=== PATIENT | male | born 1970 | race Caucasian/White ===

== ENCOUNTER 2016-09-20 20:40 | Emergency (ER) | payer BC ==
[~2016-09-20] VITALS: Ht 175.3 cm; Wt 79.8 kg
[2016-09-20 20:42] VITALS: BP 128/79; PULSE 84; RESP 16; TEMP 97.9; O2SAT 97
--- NOTE | 2016-09-20 20:56 | PD ---
HPI Chief Complaint: Musculoskeletal Complaint Time Seen by Provider: 20:54 Travel History International Travel<30 days: No Contact w/Intl Traveler<30days: No Traveled to known affect area: No History of Present Illness HPI This is a 46-year-old male who presents to the emergency department having been sitting on a barstool where his foot was about a foot up slipping off and landing on his left fifth toe. His toes been swollen ever since, with some moderate severity pain, constant, worse with movement. Patient has no other injuries. He is an avid runner. [facility] / [facility] Social History Alcohol Use: Yes Tobacco Use: No Substance Use: No Allergies-Medications (Allergen,Severity, Reaction): Coded Allergies: Aleve (Verified Allergy, Unknown, 09/20/16) Reported Meds & Prescriptions Reported Meds & Active Scripts Active No Active Prescriptions or Reported Medications Review of Systems General / Constitutional: No: Fever, Chills Cardiovascular: No: Chest Pain or Discomfort Physical Exam Narrative GENERAL: Well-appearing, no acute distress, nontoxic SKIN: Warm and dry. HEAD: Atraumatic. Normocephalic. ENT: No nasal bleeding or discharge. Moist mucous membranes MUSCULOSKELETAL: Diffuse swelling of the left fifth digit with pain with flexion and extension Vascular: Normal capillary refill of the left fifth toe. NEUROLOGICAL: Awake and alert. No obvious cranial nerve deficits. Motor grossly within normal limits. Normal speech. Sensation and motor grossly intact in the left fifth digit. PSYCHIATRIC: Appropriate mood and affect; insight and judgment normal. Data Data Last Documented VS Vital Signs Date Time Temp Pulse Resp B/P Pulse Ox O2 Delivery O2 Flow Rate FiO2 09/20/16 20:42 97.9 84 16 128/79 97 Orders Toe (Min 2vws) (09/20/16 ) Ibuprofen (Motrin) (09/20/16 21:00) Lidocaine Pf 1% Inj (Xylocaine-Mpf 1% In (09/20/16 22:00) MDM Medical Decision Making Medical Screen Exam Complete: Yes Emergency Medical Condition: Yes Interpretation(s) Afebrile, no tachycardia, normotensive Last 24 hours Impressions Toe X-Ray 09/20/16 0000 Signed Impressions: Service Date/Time: Tuesday, September 20, 2016 21:00 - CONCLUSION: 1. Fracture left fifth toe. No dislocation. Mateo Mckay MD Differential Diagnosis Phalanx fracture, metatarsal fracture, dislocation Narrative Course This is a 46-year-old male who presents to the emergency department having sustained an injury to his left fifth toe. On exam he has a normal neurovascular exam but is quite swollen. X-ray demonstrates a proximal phalanx fracture of the left fifth toe. It's fairly displaced on x-ray. I applied some traction and reduced the toe and it has more normal alignment on gross exam. He continued to have a normal neurovascular exam. The patient reports he feels much better after the reduction. We decided to defer repeat films as there is no dislocation, and the patient will follow-up with a gambreler in clinic. Patient was provided a hard shoe and the toe was manjula taped to the adjacent toe. Diagnosis Primary Impression: Fracture of fifth toe, left, closed Qualified Code: S92.502A - Fracture of fifth toe, left, closed, initial encounter Patient Instructions: General Instructions Additional Instructions: If you develop numbness, coolness weakness or severe pain of your toe return to the emergency department. Follow-up with a gambreler as soon as possible and use a hard shoe until then. Med/Other Pt SpecificInfo: No Change to Meds Scripts No Active Prescriptions or Reported Meds Disposition: 01 DISCHARGE HOME Condition: Stable Nerissa Parnell MD Sep 20, 2016 20:56
[2016-09-20] MEDS ORDERED: IBUPROFEN 600 MG TAB PO ONE (21:00)
--- NOTE | 2016-09-20 21:44 | RADRPT ---
EXAM DATE/TIME: 09/20/2016 21:00 [facility] COMPARISON: No previous studies available for comparison. INDICATIONS : Left 5th digit pain after patient fell onto left foot today MEDICAL HISTORY : None. SURGICAL HISTORY : None. ENCOUNTER: Initial ACUITY: 1 day PAIN SCORE: 6/10 LOCATION: Left 5th digit FINDINGS: Examination of the fifth digit of the left foot demonstrates a displaced fracture through the distal portion proximal phalanx left fifth toe. No dislocation. No other fractures are seen. CONCLUSION: 1. Fracture left fifth toe. No dislocation. Mateo Mckay MD on September 20, 2016 at 21:39 Board Certified Radiologist. This report was verified electronically.
[2016-09-20] MEDS ORDERED: LIDOCAINE HCL 1% PF 30 ML VIAL INFIL ONE (22:00)
== END 2016-09-20 22:21 | disposition home or self-care (01) ==
LOC: PHEFT 20:40
DX: S92.502A Displaced unspecified fracture of left lesser toe(s), initial encounter for closed fracture (principal); W18.49XA Other slipping, tripping and stumbling without falling, initial encounter
CPT/HCPCS: 73660; 99283; L3260